=== PATIENT | male | born 1940 | race Caucasian/White ===

== ENCOUNTER 2023-08-23 11:15 | Outpatient (CLI) | payer MEDICARE, SELFPAY ==
--- NOTE | ~2023-08-23 | XR_ITS ---
EXAMINATION: XR abdomen/kub 1V INDICATION: Calcium kidney stone TECHNIQUE: Supine views of the abdomen were obtained on 2 radiographs. COMPARISON: None FINDINGS: Phleboliths are noted in the pelvis. No definite urolithiasis is identified. The bowel gas pattern is unremarkable. 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 There is at least moderate lumbar spondylosis. Surgical clips in the right upper quadrant are likely from prior cholecystectomy. IMPRESSION: 1. No definite urolithiasis identified. Reviewed, dictated and finalized at location A. T ECOLOGIST
== END 2023-08-23 11:16 | disposition home or self-care (01) ==
LOC: ANHIMG 11:22
PROVIDERS: PCP Family Medicine; Visit Provider Urology
DX: N20.0 Calculus of kidney (principal)
CPT/HCPCS: 74018